=== PATIENT | female | born 1990 | race African-American/Black ===

== ENCOUNTER 2017-03-26 17:24 | Emergency (ER) | payer OTHER, MEDICAID ==
[~2017-03-26] VITALS: Ht 170.2 cm; Wt 124.7 kg
[~2017-03-26 17:24] MED LIST: ACETAMINOPHEN-1 EAC1 ORAL; BACTRIM DS TAB1 EAC1 ORAL; CLINDAMYCIN HC300 MG ORAL; COUMADIN4 MG ORAL; IBUPROFEN600 MG ORAL; NKM
[2017-03-26] MEDS ORDERED: NKM (17:48)
[2017-03-26 18:00] VITALS: BP 113/78
[2017-03-26] MEDS ORDERED: Ketorolac 60mg Inj IM ONE (18:15)
[2017-03-26] MEDS ORDERED: ROBAXIN-750750 MG PO (18:26)
[2017-03-26] MEDS ORDERED: IBUPROFEN600 MG ORAL (18:26)
[2017-03-26 18:45] VITALS: BP 113/78
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
== END 2017-03-26 18:46 | disposition home or self-care (01) ==
LOC: EMR 18:46
DX: S16.1XXA Strain of muscle, fascia and tendon at neck level, initial encounter (principal); V43.52XA Car driver injured in collision with other type car in traffic accident, initial encounter; Y93.9 Activity, unspecified; Y92.410 Unspecified street and highway as the place of occurrence of the external cause
CPT/HCPCS: 96372; 99284

== ENCOUNTER 2018-01-23 22:19 | Emergency (ER) | payer OTHER, MEDICAID ==
[~2018-01-23] VITALS: Ht 170.2 cm; Wt 123.8 kg
[~2018-01-23 22:19] MED LIST changes: +ROBAXIN-750750 MG PO
[2018-01-23 22:49] VITALS: BP 120/70
[2018-01-23] MEDS ORDERED: AZITHROMYCIN250 MG ORAL (23:40)
[2018-01-23] MEDS ORDERED: PREDNISONE20 MG ORAL (23:40)
[2018-01-23] MEDS ORDERED: ALBUTEROL SULF8.5 GM INH (23:40)
--- NOTE | 2018-01-23 23:41 | Emergency Room Report ---
History of Present Illness General Chief Complaint: Upper Respiratory Illness Source: Patient Present Illness [facility] This 27-year-old female with no significant past medical history. She presents with a cough for the last 7 days. No nausea vomiting. Cough is productive for sputum. Also with subjective fever and chills. Started with congestion in her nose but now worse. Worse with inspiration. Worse when lying flat. Allergies: Coded Allergies: No Known Allergies (Unverified , 01/23/18) Patient History Past Medical History: see triage record, old chart reviewed Past Surgical History: none Pertinent Family History: none Social History: Denies: smoking Now: No Immunizations: other Reviewed Nursing Documentation: PMH: Agreed, PSxH: Agreed Nursing Documentation-PMH Past Medical History: No Stated History Hx Cancer: No Hx Gastrointestinal Problems: No Hx Neurological Problems: No Review of Systems Eye: Denies: eye pain, blurred vision ENT: Reports: nose congestion, Denies: ear pain, throat swelling Respiratory: Reports: cough, shortness of breath, sputum Cardiovascular: Denies: chest pain, palpitations Gastrointestinal: Denies: abdominal pain, diarrhea, nausea, vomiting Musculoskeletal: Denies: back pain, joint pain Skin: Denies: rash Neurological: Denies: headache, numbness Endocrine: Denies: increased thirst, increased urine Hematologic/Lymphatic: Denies: easy bruising All Other Systems: negative except mentioned in HPI Physical Exam Vital Signs Date Time Temp Pulse Resp B/P (MAP) Pulse Ox O2 Delivery O2 Flow Rate FiO2 01/23/18 22:38 98.4 82 16 120/70 98 Room Air 98.4 vitals normal Sp02 EP Interpretation: reviewed, normal General Appearance: well appearing, no apparent distress, alert Head: normocephalic, atraumatic Eyes: bilateral eye PERRL, bilateral eye EOMI ENT: hearing grossly normal, normal pharynx Neck: full range of motion, supple, no meningismus Respiratory: chest non-tender, lungs clear, normal breath sounds Cardiovascular #1: regular rate, rhythm, no murmur Gastrointestinal: normal bowel sounds, non tender, no mass, no organomegaly, no bruit, non-distended Musculoskeletal: back normal, gait/station normal, normal range of motion Psychiatric: mood/affect normal Skin: warm/dry Medical Decision Making Diagnostic Impression: Primary Impression: Upper respiratory infection Qualified Codes: J06.9 - Acute upper respiratory infection, unspecified ER Course Patient with an upper respiratory infection versus atypical pneumonia. She does get coughing fits with inspiration. We will treat with albuterol and prednisone. We'll also give antibiotics since been ongoing for a week and she does smoke. Last Vital Signs Date Time Temp Pulse Resp B/P (MAP) Pulse Ox O2 Delivery O2 Flow Rate FiO2 01/23/18 22:49 98.4 82 16 120/70 98 Room Air 98.4 Status: improved Disposition: HOME, SELF-CARE Condition: Stable Scripts Azithromycin* (ZITHROMAX*) 250 Mg Tablet 250 MG ORAL DAILY, #6 TAB 0 Refills Take two tablets by mouth today, then take one tablet by mouth daily for four days Prov: CHEMA ALAMO M.D. 01/23/18 Prednisone* (PREDNISONE*) 20 Mg Tablet 60 MG ORAL DAILY, #15 TAB Prov: CHEMA ALAMO M.D. 01/23/18 Albuterol Sulfate* (ALBUTEROL SULFATE MDI*) 8.5 Gm Hfa.aer.ad 2 PUFF INH Q4H Y for cough/wheezing, #1 EA 0 Refills Prov: CHEMA ALAMO M.D. 01/23/18 Patient Instructions: Upper Respiratory Infection, Adult Additional Instructions: Follow up with your doctor in 7 days. Return if worse. CHEMA ALAMO M.D. Jan 23, 2018 23:40
[2018-01-23 23:49] VITALS: BP 120/70
== END 2018-01-23 23:48 | disposition home or self-care (01) ==
LOC: EMR 23:15
DX: J06.9 Acute upper respiratory infection, unspecified (principal)
CPT/HCPCS: 99284